=== PATIENT | male | born 1955 | race Caucasian/White ===

== ENCOUNTER 2021-12-03 16:05 | Inpatient (IN) | payer MEDICARE, OTHER ==
[~2021-12-03] VITALS: Ht 185.4 cm; Wt 90.0 kg
[2021-12-03] MEDS ORDERED: SODIUM CHLORIDE 0.9% 500 ML IVB ONE (17:30)
[2021-12-03 17:37] LABS: Basophils # (auto) 0.1 10 ^3/uL (0-0.2); Basophils % (auto) 0.5 % (0.0-2.0); Eosinophils # (auto) 0 10 ^3/uL (0-0.8); Eosinophils % (auto) 0.2 % (0.0-7.0); Hematocrit 44.4 % (41.0-53.0); Hemoglobin 14.2 g/dL (13.5-17.5); Lymphocytes # (auto) 1.3 10 ^3/uL (0.4-5.4); Lymphocytes % (auto) 7.6 % (10.0-50.0); Mean Corpuscular Hemoglobin 27.8 pg (28.0-32.0); Mean Corpuscular Hgb Conc. 31.9 g/dL (32.0-36.0); Mean Corpuscular Volume 87.2 fL (80.0-100.0); Monocytes # (auto) 0.4 10 ^3/uL (0-1.3); Monocytes % (auto) 2.3 % (0.0-12.0); Neutrophils # (auto) 15.4 10 ^3/uL (1.6-8.6); Neutrophils % (auto) 89.4 % (37.0-80.0); Nucleated Red Blood Cells % 0.1 %; Red Blood Cells 5.09 10^6/uL (4.5-5.90); Red Cell Distribution Width 16.8 % (11.8-14.3); White Blood Cell 17.2 10^3/uL (4.4-10.8)
[2021-12-03 17:50] LABS: Lactic Acid w/Reflex 3.5 mmol/L (0.4-2.0)
[2021-12-03 17:54] LABS: INR 1.12 (0.9-1.15)
[2021-12-03] MEDS ORDERED: SODIUM CHLORIDE 0.9% 1,000 ML IV ONE (18:15)
[2021-12-03] MEDS ORDERED: SODIUM CHLORIDE 0.9% 500 ML IV ONE (18:45)
[2021-12-03 18:48] LABS: Urine Bacteria NONE SEEN /hpf (None Seen); Urine Blood Negative /uL (Negative); Urine Hyaline Cast FEW /lpf (0 - 2); Urine Specific Gravity 1.017 (1.001-1.035); Urine WBC <1 /hpf (0 - 3)
[2021-12-03 19:00] LABS: Alcohol, Urine < 3.0 mg/dL (0-10); Amphetamine Screen, Urine NEGATIVE (NEGATIVE); Barbiturate Scree,Urine NEGATIVE (NEGATIVE); Benzodiazephine Screen, Urine NEGATIVE (NEGATIVE); Cannabinoid Screen, Urine NEGATIVE (NEGATIVE); Cocaine Screen, Urine NEGATIVE (NEGATIVE); Opiate Scree,Urine NEGATIVE (NEGATIVE); Phencyclidine Screen, Urine NEGATIVE (NEGATIVE)
[2021-12-03] MEDS ORDERED: cefTRIAXone 1GM/50ML D5W 50 ML IV ONE (19:30)
[2021-12-03] MEDS ORDERED: AZITHROMYCIN 500MG/ 250ML 250 ML IV ONE (19:30)
[2021-12-03] MEDS: NOREPINEPHRINE 8 MG/250ML KIT 250 ML IV SCH (20:00)
[2021-12-03 21:12] LABS: Carbon Dioxide 15 mmol/L (21-32); GFR African American 33 mL/min; GFR Non-African American 27 mL/min
[2021-12-03 21:13] LABS: Blood Alcohol < 3.0 mg/dL (0-5); Magnesium 2.8 mg/dL (1.6-2.6)
[2021-12-03 21:14] LABS: Alanine Aminotransferase 47 U/L (16-61); Alkaline Phosphatase 52 U/L (45-117); Aspartate Aminotransferase 56 U/L (15-37); Bilirubin, Total 0.8 mg/dL (0.2-1.0); Calcium 8.5 mg/dL (8.5-10.1); Total Protein 6.6 g/dL (6.4-8.2)
[2021-12-03 21:15] LABS: BUN/Creatinine Ratio 12.1; Blood Urea Nitrogen 31 mg/dL (7-18); Glucose 106 mg/dL (74-106)
[2021-12-03 21:16] LABS: Anion Gap 10 (5-15); Chloride 116 mmol/L (98-107); Potassium 5.4 mmol/L (3.5-5.1); Sodium 141 mmol/L (136-145)
[2021-12-03] MEDS ORDERED: metroNIDAZOLE 500MG/100ML 100 ML IV ONE (23:30)
[2021-12-03] MEDS ORDERED: ALBUMIN 5% 250 ML IV ONE (23:30)
[2021-12-03] MEDS ORDERED: SODIUM CHLORIDE 0.9% 1,000 ML IV SCH (23:30)
[2021-12-03] MEDS ORDERED: NITROGLYCERIN 0.4 MG SL TAB SL PRN (23:30)
[2021-12-03] MEDS ORDERED: PANTOPRAZOLE 40 MG/10 ML VIAL INJ IV ONE (23:30)
[2021-12-04] MEDS: MORPHINE SULFATE INJ 2 MG/ml SYRG IV PRN ×2 (04:22→06:36)
[2021-12-04] MEDS ORDERED: SODIUM BICARBONATE 8.4 % INJ 50ML VIAL IV ONE (04:45)
[2021-12-04 07:03] LABS: Hematocrit 38.5 % (41.0-53.0); Hemoglobin 12.4 g/dL (13.5-17.5); Mean Corpuscular Hemoglobin 27.8 pg (28.0-32.0)
[2021-12-04 07:04] LABS: Mean Corpuscular Hgb Conc. 32.3 g/dL (32.0-36.0); Mean Corpuscular Volume 86.4 fL (80.0-100.0); Red Blood Cells 4.45 10^6/uL (4.5-5.90); Red Cell Distribution Width 16.7 % (11.8-14.3)
[2021-12-04 07:17] LABS: Basophils % (manual) 0 (0.0-2.0); Blast Cells 0; Eosinophils % (manual) 0 (0-7); Metamyelocytes % 0; Myelocytes % 0; Promyelocytes % 0; Reactive Lymphocytes 0; White Blood Cell 31.2 10^3/uL (4.4-10.8)
[2021-12-04] MEDS ORDERED: LORazepam 2MG/ML-1ML VIAL IV ONE (07:30)
[2021-12-04] MEDS: metroNIDAZOLE 500MG/100ML 100 ML IV SCH ×3 (07:53→23:11)
[2021-12-04] MEDS: cefTRIAXone 1GM/50ML D5W 50 ML IV SCH (09:42)
[2021-12-04] MEDS ORDERED: PANTOPRAZOLE 40 MG/10 ML VIAL INJ IV SCH (10:00)
[2021-12-04] MEDS: ACETAMINOPHEN 325 MG TAB PO PRN ×2 (11:03→18:47)
[2021-12-04 11:13] LABS: BUN/Creatinine Ratio 10.5; Potassium 6.3 mmol/L (3.5-5.1)
[2021-12-04 11:14] LABS: Albumin 3.1 g/dL (3.4-5.0); Bilirubin, Total 0.7 mg/dL (0.2-1.0); Total Protein 6.4 g/dL (6.4-8.2)
[2021-12-04] MEDS ORDERED: InsuLIN REG 1unit/0.01ml Soln (100units/ml) IV ONE (11:30)
[2021-12-04] MEDS ORDERED: DEXTROSE (50%) 50ML SYRG IV ONE (11:30)
[2021-12-04] MEDS ORDERED: ALBUTEROL SULF 2.5 MG/0.5ML(0.5%) NEB SOLN NEB ONE (11:30)
[2021-12-04] MEDS ORDERED: SODIUM ZIRCONIUM CYCL 10 GM PAK PO ONE (11:30)
[2021-12-04] MEDS ORDERED: SODIUM CHLORIDE 0.9% 1,000 ML IV ONE ×2 (12:00→18:00)
[2021-12-04 12:04] LABS: Band Neutrophils % (manual) 34; Lymphocytes % (manual) 9 (10.0-50.0); Monocytes % (manual) 9 (0-12)
[2021-12-04 13:09] VITALS: BP 89/74
[2021-12-04] MEDS: LINEZOLID 600MG/300ML 300 ML IV SCH ×2 (13:11→23:12)
[2021-12-04] MEDS ORDERED: FUROSEMIDE 100 MG/10ML VIAL IV ONE (14:30)
[2021-12-04] MEDS: SODIUM BICARBONATE 50ML VIAL 150 ML in D5W 5% 1,000 ML IV SCH (15:15)
[2021-12-04 15:17] LABS: BUN/Creatinine Ratio 12.1; Calcium 7.6 mg/dL (8.5-10.1); Potassium 4.9 mmol/L (3.5-5.1)
[2021-12-04] MEDS ORDERED: HYDROcodone-ACET 5/325MG TAB PO PRN (20:30)
[2021-12-04] MEDS ORDERED: THIAMINE 100mg/ml INJ (200mg/2ml VIAL) IV ONE (20:45)
[2021-12-04] MEDS: PANTOPRAZOLE 40 MG/10 ML VIAL INJ IV SCH (23:12)
[2021-12-05] VITALS (43 sets, daily range): BP systolic 77–166; BP diastolic 52–107
[2021-12-05] MEDS: NOREPINEPHRINE 8 MG/250ML KIT 250 ML IV SCH ×2 (04:08→20:00)
[2021-12-05] MEDS: HYDROcodone-ACET 5/325MG TAB PO PRN ×2 (05:31→10:34)
[2021-12-05] MEDS: SODIUM BICARBONATE 50ML VIAL 150 ML in D5W 5% 1,000 ML IV SCH ×2 (05:43→17:13)
[2021-12-05] MEDS: metroNIDAZOLE 500MG/100ML 100 ML IV SCH ×2 (06:00→15:01)
[2021-12-05 08:13] LABS: Hematocrit 38.7 % (41.0-53.0); Hemoglobin 12.7 g/dL (13.5-17.5); Mean Corpuscular Hemoglobin 27.7 pg (28.0-32.0); Mean Corpuscular Hgb Conc. 32.8 g/dL (32.0-36.0); Mean Corpuscular Volume 84.5 fL (80.0-100.0); Red Blood Cells 4.57 10^6/uL (4.5-5.90); Red Cell Distribution Width 16.7 % (11.8-14.3); White Blood Cell 20.7 10^3/uL (4.4-10.8)
[2021-12-05 08:29] LABS: Blast Cells 0; Eosinophils % (manual) 0 (0-7); Myelocytes % 0; Promyelocytes % 0; Reactive Lymphocytes 0
[2021-12-05 08:32] LABS: BUN/Creatinine Ratio 14.7; Calcium 7.6 mg/dL (8.5-10.1); Potassium 4.5 mmol/L (3.5-5.1)
[2021-12-05 10:22] LABS: Band Neutrophils % (manual) 14; Basophils % (manual) 1 (0.0-2.0); Lymphocytes % (manual) 6 (10.0-50.0); Metamyelocytes % 3; Monocytes % (manual) 6 (0-12)
[2021-12-05] MEDS: PANTOPRAZOLE 40 MG/10 ML VIAL INJ IV SCH ×2 (10:36→21:37)
[2021-12-05] MEDS: cefTRIAXone 1GM/50ML D5W 50 ML IV SCH (10:36)
[2021-12-05] MEDS ORDERED: SODIUM CHLORIDE 0.9% 500 ML IV ONE (11:00)
[2021-12-05] MEDS ORDERED: ASPI1TAB19 PO (12:12)
[2021-12-05] MEDS ORDERED: DICL75TA3 PO ×2 (12:12)
[2021-12-05] MEDS ORDERED: LISI-275 PO (12:12)
[2021-12-05] MEDS ORDERED: CARV3.1240 PO (12:12)
[2021-12-05] MEDS ORDERED: GABA300C10 PO (12:12)
[2021-12-05] MEDS ORDERED: ATOR40TA52 PO (12:12)
[2021-12-05] MEDS ORDERED: MONT-8 OR (12:12)
[2021-12-05] MEDS ORDERED: MULT-1018 PO (12:12)
[2021-12-05] MEDS: LINEZOLID 600MG/300ML 300 ML IV SCH ×2 (12:16→23:23)
[2021-12-05 12:51] LABS: Potassium 4.2 mmol/L (3.5-5.1)
[2021-12-05 12:55] LABS: BUN/Creatinine Ratio 14.8; Calcium 7.2 mg/dL (8.5-10.1)
[2021-12-05] MEDS: HYOSCYAMINE SULF 0.125 MG ODT TAB PO PRN (15:02)
[2021-12-05] MEDS ORDERED: GABAPENTIN 300 MG CAP PO SCH ×2 (16:00→22:00)
[2021-12-05] MEDS: PIPERACILLIN-TAZOB 2.25GM 50 ML IV SCH ×2 (17:12→21:39)
[2021-12-05 18:03] LABS: BUN/Creatinine Ratio 14.3; Calcium 7.2 mg/dL (8.5-10.1); Potassium 3.9 mmol/L (3.5-5.1)
[2021-12-05] MEDS: ALBUTEROL SULF 2.5 MG/0.5ML(0.5%) NEB SOLN NEB PRN (18:54)
[2021-12-05] MEDS ORDERED: GABAPENTIN 300 MG CAP PO ONE (20:00)
[2021-12-05] MEDS: MONTELUKAST SODIUM 10 MG TAB PO SCH (21:38)
[2021-12-05] MEDS ORDERED: levETIRAcetam 500 MG TAB PO SCH (22:00)
[2021-12-05] MEDS: MORPHINE SULFATE INJ 2 MG/ml SYRG IV PRN ×2 (23:32)
[2021-12-06] VITALS (84 sets, daily range): BP systolic 84–154; BP diastolic 47–109
[2021-12-06] MEDS: NOREPINEPHRINE 8 MG/250ML KIT 250 ML IV SCH (00:07)
[2021-12-06 04:29] LABS: Basophils # (auto) 0 10 ^3/uL (0-0.2); Basophils % (auto) 0.2 % (0.0-2.0); Eosinophils # (auto) 0 10 ^3/uL (0-0.8); Eosinophils % (auto) 0.2 % (0.0-7.0); Hemoglobin 11.1 g/dL (13.5-17.5); Lymphocytes # (auto) 1.2 10 ^3/uL (0.4-5.4); Lymphocytes % (auto) 7.4 % (10.0-50.0); Mean Corpuscular Hemoglobin 28.3 pg (28.0-32.0); Mean Corpuscular Hgb Conc. 33.7 g/dL (32.0-36.0); Mean Corpuscular Volume 83.9 fL (80.0-100.0); Monocytes # (auto) 1.2 10 ^3/uL (0-1.3); Monocytes % (auto) 7.9 % (0.0-12.0); Neutrophils # (auto) 13.3 10 ^3/uL (1.6-8.6); Neutrophils % (auto) 84.3 % (37.0-80.0); Nucleated Red Blood Cells % 1.8 %; Red Blood Cells 3.93 10^6/uL (4.5-5.90); Red Cell Distribution Width 16.7 % (11.8-14.3); White Blood Cell 15.7 10^3/uL (4.4-10.8)
[2021-12-06 04:53] LABS: BUN/Creatinine Ratio 14.9; Calcium 7.4 mg/dL (8.5-10.1); Potassium 3.6 mmol/L (3.5-5.1)
[2021-12-06] MEDS: PIPERACILLIN-TAZOB 2.25GM 50 ML IV SCH ×3 (05:00→18:47)
[2021-12-06] MEDS ORDERED: SODIUM BICARBONATE 8.4% INJ 50ML SYRINGE ONE (05:14)
[2021-12-06] MEDS ORDERED: SODIUM BICARBONATE 8.4 % INJ 50ML VIAL IV ONE (05:15)
[2021-12-06] MEDS: SODIUM BICARBONATE 50ML VIAL 150 ML in D5W 5% 1,000 ML IV SCH (05:26)
[2021-12-06] MEDS: MORPHINE SULFATE INJ 2 MG/ml SYRG IV PRN ×3 (06:16→22:04)
[2021-12-06] MEDS: ALBUTEROL SULF 2.5 MG/0.5ML(0.5%) NEB SOLN NEB PRN ×2 (07:21→12:12)
[2021-12-06] MEDS: PANTOPRAZOLE 40 MG/10 ML VIAL INJ IV SCH ×2 (09:34→21:58)
[2021-12-06] MEDS ORDERED: GABAPENTIN 300 MG CAP PO SCH (10:00)
[2021-12-06] MEDS ORDERED: ACETAMINOPHEN 325 MG TAB PO PRN (11:15)
[2021-12-06] MEDS: ACETAMINOPHEN 325 MG TAB PO PRN (11:34)
[2021-12-06] MEDS: GABAPENTIN 100 MG CAP PO SCH ×2 (11:34→22:05)
[2021-12-06] MEDS: LINEZOLID 600MG/300ML 300 ML IV SCH ×2 (11:37→23:24)
[2021-12-06 12:11] LABS: INR 1.08 (0.9-1.15)
[2021-12-06] MEDS: ONDANSETRON HCL 4 MG/2 ML VIAL IV PRN (12:30)
[2021-12-06] MEDS: SODIUM CHLORIDE 0.9% 1,000 ML IV SCH (14:30)
[2021-12-06] MEDS ORDERED: LIDOCAINE 1% (LOCAL ANESTH.) PF 5ml SDV ID ONE (16:30)
[2021-12-06] MEDS: SODIUM CHLOR 0.9% PF (SALINE LOCK) 10ML VIAL/SYR IV SCH (22:04)
[2021-12-06] MEDS: MONTELUKAST SODIUM 10 MG TAB PO SCH (22:05)
[2021-12-06] MEDS: HEPARIN SODIUM (PORCINE) 5000 UNITS/ML 1ML VIAL SC SCH (22:07)
[2021-12-07] VITALS (67 sets, daily range): BP systolic 85–130; BP diastolic 29–87
[2021-12-07] MEDS: PIPERACILLIN-TAZOB 2.25GM 50 ML IV SCH ×3 (01:35→09:59)
[2021-12-07] MEDS: HYOSCYAMINE SULF 0.125 MG ODT TAB PO PRN (03:06)
[2021-12-07] MEDS: SODIUM CHLORIDE 0.9% 1,000 ML IV SCH ×3 (05:38→23:43)
[2021-12-07] MEDS: MORPHINE SULFATE INJ 2 MG/ml SYRG IV PRN ×6 (05:51→23:30)
[2021-12-07 06:00] LABS: Basophils # (auto) 0.1 10 ^3/uL (0-0.2); Basophils % (auto) 0.5 % (0.0-2.0); Eosinophils # (auto) 0.1 10 ^3/uL (0-0.8); Hematocrit 30.3 % (41.0-53.0); Hemoglobin 10.4 g/dL (13.5-17.5); Lymphocytes # (auto) 1.3 10 ^3/uL (0.4-5.4); Lymphocytes % (auto) 11.1 % (10.0-50.0); Mean Corpuscular Hgb Conc. 34.4 g/dL (32.0-36.0); Mean Corpuscular Volume 84.2 fL (80.0-100.0); Monocytes % (auto) 8.3 % (0.0-12.0); Neutrophils # (auto) 9.4 10 ^3/uL (1.6-8.6); Neutrophils % (auto) 79.1 % (37.0-80.0); Nucleated Red Blood Cells % 0.1 %; Red Cell Distribution Width 16.5 % (11.8-14.3); White Blood Cell 11.9 10^3/uL (4.4-10.8)
[2021-12-07 06:18] LABS: BUN/Creatinine Ratio 12.7; Calcium 7.6 mg/dL (8.5-10.1); Potassium 3.7 mmol/L (3.5-5.1)
[2021-12-07] MEDS ORDERED: MORPHINE SULFATE INJ 2 MG/ml SYRG ONE (09:53)
[2021-12-07] MEDS: PANTOPRAZOLE 40 MG/10 ML VIAL INJ IV SCH ×2 (09:59→22:10)
[2021-12-07] MEDS: SODIUM CHLOR 0.9% PF (SALINE LOCK) 10ML VIAL/SYR IV SCH ×2 (10:04→22:12)
[2021-12-07] MEDS: HEPARIN SODIUM (PORCINE) 5000 UNITS/ML 1ML VIAL SC SCH ×2 (10:16→22:04)
[2021-12-07] MEDS: GABAPENTIN 100 MG CAP PO SCH (10:53)
[2021-12-07] MEDS: LINEZOLID 600MG/300ML 300 ML IV SCH ×2 (12:08→23:00)
[2021-12-07] MEDS ORDERED: IOHEXOL 300 MG/ML 100ML BOTTLE IJ ONE (13:58)
[2021-12-07] MEDS: GABAPENTIN 300 MG CAP PO SCH ×2 (16:35→22:10)
[2021-12-07] MEDS: PIPERACILLIN-TAZOB 3.375GM 100 ML IV SCH ×2 (16:35→22:12)
[2021-12-07] MEDS: NOREPINEPHRINE 8 MG/250ML KIT 250 ML IV SCH (20:00)
[2021-12-07] MEDS: MONTELUKAST SODIUM 10 MG TAB PO SCH (22:09)
[2021-12-08] VITALS (14 sets, daily range): BP systolic 105–150; BP diastolic 62–91
[2021-12-08] MEDS: PIPERACILLIN-TAZOB 3.375GM 100 ML IV SCH ×5 (03:11→22:38)
[2021-12-08] MEDS: MORPHINE SULFATE INJ 2 MG/ml SYRG IV PRN ×6 (03:21→23:02)
[2021-12-08 03:47] LABS: Basophils # (auto) 0.1 10 ^3/uL (0-0.2); Basophils % (auto) 0.5 % (0.0-2.0); Eosinophils # (auto) 0.2 10 ^3/uL (0-0.8); Eosinophils % (auto) 1.5 % (0.0-7.0); Hematocrit 30.5 % (41.0-53.0); Hemoglobin 10.3 g/dL (13.5-17.5); Lymphocytes # (auto) 1.3 10 ^3/uL (0.4-5.4); Lymphocytes % (auto) 12.4 % (10.0-50.0); Mean Corpuscular Hemoglobin 28.4 pg (28.0-32.0); Mean Corpuscular Hgb Conc. 33.7 g/dL (32.0-36.0); Mean Corpuscular Volume 84.3 fL (80.0-100.0); Monocytes % (auto) 9.9 % (0.0-12.0); Neutrophils # (auto) 7.9 10 ^3/uL (1.6-8.6); Neutrophils % (auto) 75.7 % (37.0-80.0); Red Blood Cells 3.62 10^6/uL (4.5-5.90); Red Cell Distribution Width 16.2 % (11.8-14.3); White Blood Cell 10.4 10^3/uL (4.4-10.8)
[2021-12-08 04:07] LABS: BUN/Creatinine Ratio 12.6; Calcium 7.5 mg/dL (8.5-10.1); Potassium 3.7 mmol/L (3.5-5.1)
[2021-12-08] MEDS: GABAPENTIN 300 MG CAP PO SCH ×3 (05:34→22:39)
[2021-12-08] MEDS: SODIUM CHLORIDE 0.9% 1,000 ML IV SCH ×3 (08:29→15:40)
[2021-12-08] MEDS: PANTOPRAZOLE 40 MG/10 ML VIAL INJ IV SCH ×2 (12:52→22:39)
[2021-12-08] MEDS: SODIUM CHLOR 0.9% PF (SALINE LOCK) 10ML VIAL/SYR IV SCH ×2 (12:52→22:39)
[2021-12-08] MEDS: LINEZOLID 600MG/300ML 300 ML IV SCH (12:53)
[2021-12-08] MEDS: HEPARIN SODIUM (PORCINE) 5000 UNITS/ML 1ML VIAL SC SCH ×2 (12:53→22:44)
[2021-12-08] MEDS: MONTELUKAST SODIUM 10 MG TAB PO SCH (22:40)
[2021-12-09] MEDS: LINEZOLID 600MG/300ML 300 ML IV SCH ×3 (00:24→23:04)
[2021-12-09] MEDS: PIPERACILLIN-TAZOB 3.375GM 100 ML IV SCH ×5 (02:54→20:56)
[2021-12-09 05:00] VITALS: BP 157/91
[2021-12-09 05:55] LABS: Basophils # (auto) 0.1 10 ^3/uL (0-0.2); Basophils % (auto) 0.6 % (0.0-2.0); Eosinophils # (auto) 0.2 10 ^3/uL (0-0.8); Eosinophils % (auto) 2.1 % (0.0-7.0); Hematocrit 35.1 % (41.0-53.0); Hemoglobin 11.7 g/dL (13.5-17.5); Lymphocytes # (auto) 1.9 10 ^3/uL (0.4-5.4); Lymphocytes % (auto) 21.8 % (10.0-50.0); Mean Corpuscular Hemoglobin 28.5 pg (28.0-32.0); Mean Corpuscular Hgb Conc. 33.5 g/dL (32.0-36.0); Mean Corpuscular Volume 85.2 fL (80.0-100.0); Monocytes # (auto) 1.2 10 ^3/uL (0-1.3); Neutrophils # (auto) 5.6 10 ^3/uL (1.6-8.6); Neutrophils % (auto) 62.5 % (37.0-80.0); Nucleated Red Blood Cells % 0.1 %; Red Blood Cells 4.11 10^6/uL (4.5-5.90); Red Cell Distribution Width 16.5 % (11.8-14.3); White Blood Cell 8.9 10^3/uL (4.4-10.8)
[2021-12-09 06:15] LABS: BUN/Creatinine Ratio 10.9; Calcium 8.4 mg/dL (8.5-10.1); Potassium 3.3 mmol/L (3.5-5.1)
[2021-12-09] MEDS: GABAPENTIN 300 MG CAP PO SCH ×3 (06:18→23:03)
[2021-12-09] MEDS: MORPHINE SULFATE INJ 2 MG/ml SYRG IV PRN ×4 (06:37→20:50)
[2021-12-09] MEDS: SODIUM CHLORIDE 0.9% 1,000 ML IV SCH (06:38)
[2021-12-09 08:00] VITALS: BP 139/91
[2021-12-09] MEDS: HEPARIN SODIUM (PORCINE) 5000 UNITS/ML 1ML VIAL SC SCH ×2 (10:00→22:00)
[2021-12-09] MEDS: PANTOPRAZOLE 40 MG/10 ML VIAL INJ IV SCH ×2 (10:00→23:02)
[2021-12-09] MEDS: SODIUM CHLOR 0.9% PF (SALINE LOCK) 10ML VIAL/SYR IV SCH ×2 (10:00→22:00)
[2021-12-09 12:00] VITALS: BP 129/90
[2021-12-09 16:00] VITALS: BP 160/94
[2021-12-09 22:00] VITALS: BP 143/93
[2021-12-09] MEDS: MONTELUKAST SODIUM 10 MG TAB PO SCH (23:03)
[2021-12-10] MEDS: MORPHINE SULFATE INJ 2 MG/ml SYRG IV PRN ×7 (00:54→23:14)
[2021-12-10] MEDS: PIPERACILLIN-TAZOB 3.375GM 100 ML IV SCH ×4 (03:14→20:58)
[2021-12-10 05:00] VITALS: BP 144/96
[2021-12-10] MEDS: GABAPENTIN 300 MG CAP PO SCH ×3 (05:27→21:55)
[2021-12-10 06:08] LABS: BUN/Creatinine Ratio 10.2; Calcium 7.8 mg/dL (8.5-10.1); Potassium 3.3 mmol/L (3.5-5.1)
[2021-12-10 06:11] LABS: Basophils # (auto) 0 10 ^3/uL (0-0.2); Basophils % (auto) 0.7 % (0.0-2.0); Eosinophils # (auto) 0.3 10 ^3/uL (0-0.8); Eosinophils % (auto) 4.3 % (0.0-7.0); Hematocrit 31.4 % (41.0-53.0); Hemoglobin 10.8 g/dL (13.5-17.5); Lymphocytes # (auto) 2.2 10 ^3/uL (0.4-5.4); Lymphocytes % (auto) 28.2 % (10.0-50.0); Mean Corpuscular Hemoglobin 29.4 pg (28.0-32.0); Mean Corpuscular Hgb Conc. 34.5 g/dL (32.0-36.0); Mean Corpuscular Volume 85.1 fL (80.0-100.0); Monocytes # (auto) 1.3 10 ^3/uL (0-1.3); Monocytes % (auto) 16.9 % (0.0-12.0); Neutrophils # (auto) 3.8 10 ^3/uL (1.6-8.6); Neutrophils % (auto) 49.9 % (37.0-80.0); Nucleated Red Blood Cells % 0.1 %; Red Blood Cells 3.69 10^6/uL (4.5-5.90); Red Cell Distribution Width 15.6 % (11.8-14.3); White Blood Cell 7.6 10^3/uL (4.4-10.8)
[2021-12-10 08:00] VITALS: BP 114/90
[2021-12-10] MEDS: HEPARIN SODIUM (PORCINE) 5000 UNITS/ML 1ML VIAL SC SCH ×2 (10:00→22:05)
[2021-12-10] MEDS: SODIUM CHLOR 0.9% PF (SALINE LOCK) 10ML VIAL/SYR IV SCH ×2 (10:00→22:19)
[2021-12-10] MEDS: PANTOPRAZOLE 40 MG/10 ML VIAL INJ IV SCH ×2 (10:00→21:55)
[2021-12-10] MEDS ORDERED: GOLYTELY 4L KIT PO ONE (11:15)
[2021-12-10 11:25] VITALS: BP 114/90
[2021-12-10 12:00] VITALS: BP 130/84
[2021-12-10] MEDS ORDERED: POTASSIUM EFFERVESENT TAB 25 MEQ PO ONE (12:15)
[2021-12-10] MEDS: LINEZOLID 600MG/300ML 300 ML IV SCH ×2 (12:28→23:13)
[2021-12-10] MEDS: ALBUTEROL SULF 2.5 MG/0.5ML(0.5%) NEB SOLN NEB PRN (14:50)
[2021-12-10 16:00] VITALS: BP 121/77
[2021-12-10] MEDS: MONTELUKAST SODIUM 10 MG TAB PO SCH (21:56)
[2021-12-10 22:00] VITALS: BP 119/90
[2021-12-11] MEDS: PIPERACILLIN-TAZOB 3.375GM 100 ML IV SCH ×4 (03:05→23:36)
[2021-12-11] MEDS: MORPHINE SULFATE INJ 2 MG/ml SYRG IV PRN ×5 (03:06→20:15)
[2021-12-11 05:00] VITALS: BP 141/93
[2021-12-11 05:09] LABS: Basophils # (auto) 0 10 ^3/uL (0-0.2); Basophils % (auto) 0.6 % (0.0-2.0); Eosinophils # (auto) 0.4 10 ^3/uL (0-0.8); Eosinophils % (auto) 5.5 % (0.0-7.0); Hematocrit 32.7 % (41.0-53.0); Hemoglobin 10.8 g/dL (13.5-17.5); Lymphocytes % (auto) 26.1 % (10.0-50.0); Mean Corpuscular Hemoglobin 28.2 pg (28.0-32.0); Mean Corpuscular Hgb Conc. 33.1 g/dL (32.0-36.0); Mean Corpuscular Volume 85.4 fL (80.0-100.0); Monocytes % (auto) 13.4 % (0.0-12.0); Neutrophils # (auto) 4.1 10 ^3/uL (1.6-8.6); Neutrophils % (auto) 54.4 % (37.0-80.0); Nucleated Red Blood Cells % 0.1 %; Red Blood Cells 3.83 10^6/uL (4.5-5.90); Red Cell Distribution Width 15.6 % (11.8-14.3); White Blood Cell 7.6 10^3/uL (4.4-10.8)
[2021-12-11 05:27] LABS: BUN/Creatinine Ratio 6.5; Calcium 7.9 mg/dL (8.5-10.1); Potassium 3.5 mmol/L (3.5-5.1)
[2021-12-11] MEDS: GABAPENTIN 300 MG CAP PO SCH ×3 (05:44→21:20)
[2021-12-11 09:06] VITALS: BP 137/91
[2021-12-11] MEDS: SODIUM CHLOR 0.9% PF (SALINE LOCK) 10ML VIAL/SYR IV SCH ×2 (10:09→21:20)
[2021-12-11] MEDS: PANTOPRAZOLE 40 MG/10 ML VIAL INJ IV SCH ×2 (10:09→21:20)
[2021-12-11] MEDS: HEPARIN SODIUM (PORCINE) 5000 UNITS/ML 1ML VIAL SC SCH ×2 (10:17→21:19)
[2021-12-11] MEDS ORDERED: diphenhdrAMINE HCL 50 MG/1 ML VL ONE (10:37)
[2021-12-11] MEDS ORDERED: SODIUM CHLORIDE LOCK 10 ML ONE (10:37)
[2021-12-11] MEDS: MIDAZOLAM HCL 5 MG/ML-1ML VIAL ONE ×3 (13:12→13:18)
[2021-12-11] MEDS: fentaNYL CITRATE 100 MCG/2 ML VL ONE ×3 (13:12→13:18)
[2021-12-11 14:00] VITALS: BP_SYST 125; BP_SYST 137; BP_DIAS 80; BP_DIAS 90
[2021-12-11] MEDS: LINEZOLID 600MG/300ML 300 ML IV SCH (14:47)
[2021-12-11 17:00] VITALS: BP 125/90
[2021-12-11] MEDS: MONTELUKAST SODIUM 10 MG TAB PO SCH (21:20)
[2021-12-11 22:00] VITALS: BP 137/88
[2021-12-12] MEDS: MORPHINE SULFATE INJ 2 MG/ml SYRG IV PRN ×7 (00:14→23:23)
[2021-12-12 05:00] VITALS: BP 149/89
[2021-12-12] MEDS: PIPERACILLIN-TAZOB 3.375GM 100 ML IV SCH ×3 (05:35→18:58)
[2021-12-12] MEDS: GABAPENTIN 300 MG CAP PO SCH ×3 (05:35→21:49)
[2021-12-12 06:57] LABS: Eosinophils % (auto) 5.4 % (0.0-7.0)
[2021-12-12 07:00] LABS: Basophils # (auto) 0.1 10 ^3/uL (0-0.2); Basophils % (auto) 1.1 % (0.0-2.0); Eosinophils # (auto) 0.5 10 ^3/uL (0-0.8); Hematocrit 32.9 % (41.0-53.0); Hemoglobin 10.7 g/dL (13.5-17.5); Lymphocytes % (auto) 35.2 % (10.0-50.0); Mean Corpuscular Hemoglobin 28.4 pg (28.0-32.0); Mean Corpuscular Hgb Conc. 32.6 g/dL (32.0-36.0); Mean Corpuscular Volume 87.1 fL (80.0-100.0); Neutrophils # (auto) 3.9 10 ^3/uL (1.6-8.6); Neutrophils % (auto) 46.3 % (37.0-80.0); Nucleated Red Blood Cells % 0.1 %; Red Blood Cells 3.78 10^6/uL (4.5-5.90); Red Cell Distribution Width 15.9 % (11.8-14.3); White Blood Cell 8.5 10^3/uL (4.4-10.8)
[2021-12-12 07:10] LABS: BUN/Creatinine Ratio 5.4; Calcium 7.8 mg/dL (8.5-10.1); Potassium 3.6 mmol/L (3.5-5.1)
[2021-12-12 08:10] VITALS: BP 127/95
[2021-12-12] MEDS: PANTOPRAZOLE 40 MG/10 ML VIAL INJ IV SCH ×2 (09:26→21:49)
[2021-12-12] MEDS: SODIUM CHLOR 0.9% PF (SALINE LOCK) 10ML VIAL/SYR IV SCH ×2 (09:27→21:49)
[2021-12-12] MEDS: HEPARIN SODIUM (PORCINE) 5000 UNITS/ML 1ML VIAL SC SCH ×2 (09:41→21:54)
[2021-12-12 12:15] VITALS: BP 143/65
[2021-12-12 16:51] VITALS: BP 147/95
[2021-12-12] MEDS: MONTELUKAST SODIUM 10 MG TAB PO SCH (21:49)
[2021-12-12 22:00] VITALS: BP 143/83
[2021-12-13] MEDS: PIPERACILLIN-TAZOB 3.375GM 100 ML IV SCH ×3 (00:10→11:26)
[2021-12-13] MEDS: MORPHINE SULFATE INJ 2 MG/ml SYRG IV PRN ×4 (04:48→20:44)
[2021-12-13 05:00] VITALS: BP 134/78
[2021-12-13] MEDS: GABAPENTIN 300 MG CAP PO SCH ×3 (05:39→22:00)
[2021-12-13] MEDS: HEPARIN SODIUM (PORCINE) 5000 UNITS/ML 1ML VIAL SC SCH ×2 (11:36→21:42)
[2021-12-13] MEDS: PANTOPRAZOLE 40 MG/10 ML VIAL INJ IV SCH ×2 (11:36→21:41)
[2021-12-13] MEDS: SODIUM CHLOR 0.9% PF (SALINE LOCK) 10ML VIAL/SYR IV SCH ×2 (11:37→21:43)
[2021-12-13 13:00] VITALS: BP 136/81
[2021-12-13] MEDS: HYOSCYAMINE SULF 0.125 MG ODT TAB PO PRN (15:58)
[2021-12-13 16:55] VITALS: BP 150/98
[2021-12-13] MEDS ORDERED: AMINO ACID INFUSION IN D10W 1,000 ML IV NR (21:45)
[2021-12-13 22:00] VITALS: BP 163/94
[2021-12-13] MEDS ORDERED: DEXTROSE (50%) 50ML SYRG IV SCH (22:00)
[2021-12-13] MEDS: MONTELUKAST SODIUM 10 MG TAB PO SCH (22:00)
[2021-12-13] MEDS: ACCU-CHEK COMFORT CURVE STRIP VI SCH (23:41)
[2021-12-13] MEDS: InsuLIN REG 1unit/0.01ml Soln (100units/ml) SC SCH (23:42)
[2021-12-14] MEDS: MORPHINE SULFATE INJ 2 MG/ml SYRG IV PRN ×6 (00:17→22:11)
[2021-12-14] MEDS: MONTELUKAST SODIUM 10 MG TAB PO SCH ×2 (01:02→22:09)
[2021-12-14] MEDS: GABAPENTIN 300 MG CAP PO SCH ×4 (01:02→22:08)
[2021-12-14] MEDS: ACCU-CHEK COMFORT CURVE STRIP VI SCH ×3 (05:46→17:42)
[2021-12-14] MEDS: InsuLIN REG 1unit/0.01ml Soln (100units/ml) SC SCH ×4 (05:46→22:41)
[2021-12-14 05:49] VITALS: BP 149/85
[2021-12-14 06:47] LABS: Albumin 2.2 g/dL (3.4-5.0); Calcium 7.9 mg/dL (8.5-10.1); Magnesium 1.9 mg/dL (1.6-2.6); Potassium 3.7 mmol/L (3.5-5.1)
[2021-12-14 06:50] LABS: BUN/Creatinine Ratio 7.3; Bilirubin, Total 0.3 mg/dL (0.2-1.0); Phosphorus 2.2 mg/dL (2.5-4.90); Total Protein 5.5 g/dL (6.4-8.2)
[2021-12-14 08:05] LABS: Basophils # (auto) 0.1 10 ^3/uL (0-0.2); Basophils % (auto) 1.1 % (0.0-2.0); Eosinophils # (auto) 0.1 10 ^3/uL (0-0.8); Eosinophils % (auto) 1.8 % (0.0-7.0); Hemoglobin 10.7 g/dL (13.5-17.5); Lymphocytes % (auto) 25.1 % (10.0-50.0); Mean Corpuscular Hemoglobin 28.6 pg (28.0-32.0); Mean Corpuscular Hgb Conc. 32.5 g/dL (32.0-36.0); Monocytes % (auto) 11.8 % (0.0-12.0); Neutrophils # (auto) 4.9 10 ^3/uL (1.6-8.6); Neutrophils % (auto) 60.2 % (37.0-80.0); Nucleated Red Blood Cells % 0.1 %; Red Blood Cells 3.75 10^6/uL (4.5-5.90); Red Cell Distribution Width 15.6 % (11.8-14.3); White Blood Cell 8.1 10^3/uL (4.4-10.8)
[2021-12-14 09:00] VITALS: BP 128/86
[2021-12-14] MEDS: SODIUM CHLOR 0.9% PF (SALINE LOCK) 10ML VIAL/SYR IV SCH ×2 (09:30→22:14)
[2021-12-14] MEDS ORDERED: SODIUM PHOSPHATES 40 MEQ in D5W 5% 250 ML IV ONE (09:45)
[2021-12-14] MEDS: PANTOPRAZOLE 40 MG/10 ML VIAL INJ IV SCH ×2 (09:51→22:09)
[2021-12-14] MEDS: HEPARIN SODIUM (PORCINE) 5000 UNITS/ML 1ML VIAL SC SCH ×2 (09:58→22:14)
[2021-12-14] MEDS: BENZOCAINE (DENTAL) 20 % SPRAY 60ML MT PRN (10:17)
[2021-12-14] MEDS ORDERED: BENZOCAINE (DENTAL) 20 % SPRAY 60ML MT ONE (12:00)
[2021-12-14] MEDS ORDERED: TPN PER PHARMACY 0 ML IV SCH (12:00)
[2021-12-14 13:00] VITALS: BP 138/89
[2021-12-14] MEDS: PIPERACILLIN-TAZOB 3.375GM 100 ML IV SCH ×2 (13:13→18:00)
[2021-12-14 17:02] VITALS: BP 153/100
[2021-12-14] MEDS ORDERED: TPN PER PHARMACY IV NR ×9 (20:00)
[2021-12-14 22:00] VITALS: BP 147/99
[2021-12-15] MEDS: PIPERACILLIN-TAZOB 3.375GM 100 ML IV SCH ×3 (00:17→12:20)
[2021-12-15] MEDS: ACCU-CHEK COMFORT CURVE STRIP VI SCH ×4 (04:52→17:39)
[2021-12-15 05:00] VITALS: BP 131/80
[2021-12-15] MEDS: GABAPENTIN 300 MG CAP PO SCH ×3 (05:42→22:15)
[2021-12-15] MEDS: MORPHINE SULFATE INJ 2 MG/ml SYRG IV PRN ×5 (05:45→23:04)
[2021-12-15] MEDS: InsuLIN REG 1unit/0.01ml Soln (100units/ml) SC SCH ×3 (06:00→17:37)
[2021-12-15 06:57] LABS: Albumin 2.6 g/dL (3.4-5.0); Calcium 8.4 mg/dL (8.5-10.1); Magnesium 1.6 mg/dL (1.6-2.6); Potassium 3.2 mmol/L (3.5-5.1)
[2021-12-15 07:03] LABS: Bilirubin, Total 0.4 mg/dL (0.2-1.0); Phosphorus 3.1 mg/dL (2.5-4.90); Total Protein 6.1 g/dL (6.4-8.2)
[2021-12-15 09:00] VITALS: BP 148/102
[2021-12-15] MEDS: PANTOPRAZOLE 40 MG/10 ML VIAL INJ IV SCH ×2 (10:04→22:16)
[2021-12-15] MEDS: SODIUM CHLOR 0.9% PF (SALINE LOCK) 10ML VIAL/SYR IV SCH ×2 (10:06→22:16)
[2021-12-15] MEDS: HEPARIN SODIUM (PORCINE) 5000 UNITS/ML 1ML VIAL SC SCH ×2 (10:06→22:54)
[2021-12-15] MEDS: BENZOCAINE (DENTAL) 20 % SPRAY 60ML MT PRN (10:12)
[2021-12-15] MEDS: MAGNESIUM SULFATE 1GM/100ML 100 ML IV SCH ×2 (12:18→12:59)
[2021-12-15 13:00] VITALS: BP 134/91
[2021-12-15] MEDS: POTASSIUM CHL 20MEQ/100ML 100 ML IV SCH ×2 (14:55→17:16)
[2021-12-15] MEDS ORDERED: IOHEXOL 300 MG/ML 100ML BOTTLE IJ ONE (16:18)
[2021-12-15 17:00] VITALS: BP 128/92
[2021-12-15] MEDS ORDERED: TPN PER PHARMACY IV NR ×10 (20:00)
[2021-12-15] MEDS: MONTELUKAST SODIUM 10 MG TAB PO SCH (22:15)
[2021-12-16] MEDS: ACCU-CHEK COMFORT CURVE STRIP VI SCH ×4 (00:50→17:29)
[2021-12-16] MEDS: InsuLIN REG 1unit/0.01ml Soln (100units/ml) SC SCH ×4 (06:00→17:29)
[2021-12-16] MEDS: GABAPENTIN 300 MG CAP PO SCH ×3 (06:45→22:05)
[2021-12-16] MEDS: MORPHINE SULFATE INJ 2 MG/ml SYRG IV PRN ×5 (06:47→22:50)
[2021-12-16 07:50] LABS: Albumin 2.7 g/dL (3.4-5.0); BUN/Creatinine Ratio 14.1; Calcium 8.4 mg/dL (8.5-10.1); Magnesium 2.5 mg/dL (1.6-2.6); Phosphorus 2.6 mg/dL (2.5-4.90); Potassium 3.9 mmol/L (3.5-5.1)
[2021-12-16 08:00] VITALS: BP_DIAS 0
[2021-12-16 09:00] VITALS: BP 146/84
[2021-12-16] MEDS: PANTOPRAZOLE 40 MG/10 ML VIAL INJ IV SCH ×2 (10:32→22:04)
[2021-12-16] MEDS: SODIUM CHLOR 0.9% PF (SALINE LOCK) 10ML VIAL/SYR IV SCH ×2 (10:32→22:05)
[2021-12-16] MEDS: HEPARIN SODIUM (PORCINE) 5000 UNITS/ML 1ML VIAL SC SCH ×2 (10:33→22:09)
[2021-12-16 13:00] VITALS: BP 131/86
[2021-12-16 17:00] VITALS: BP 138/84
[2021-12-16] MEDS ORDERED: TPN PER PHARMACY IV NR ×8 (20:00)
[2021-12-16 22:00] VITALS: BP 141/91
[2021-12-16] MEDS: MONTELUKAST SODIUM 10 MG TAB PO SCH (22:05)
[2021-12-17] MEDS: ACCU-CHEK COMFORT CURVE STRIP VI SCH ×5 (00:07→23:39)
[2021-12-17] MEDS: MORPHINE SULFATE INJ 2 MG/ml SYRG IV PRN ×6 (03:36→23:05)
[2021-12-17 05:00] VITALS: BP 137/88
[2021-12-17] MEDS: InsuLIN REG 1unit/0.01ml Soln (100units/ml) SC SCH ×4 (05:57→18:00)
[2021-12-17] MEDS: GABAPENTIN 300 MG CAP PO SCH ×3 (06:08→22:19)
[2021-12-17 07:44] VITALS: BP_DIAS 0
[2021-12-17 09:00] VITALS: BP 147/100
[2021-12-17] MEDS: SODIUM CHLOR 0.9% PF (SALINE LOCK) 10ML VIAL/SYR IV SCH ×2 (09:04→22:19)
[2021-12-17] MEDS: PANTOPRAZOLE 40 MG/10 ML VIAL INJ IV SCH ×2 (09:04→22:19)
[2021-12-17] MEDS: HEPARIN SODIUM (PORCINE) 5000 UNITS/ML 1ML VIAL SC SCH (09:05)
[2021-12-17 10:59] LABS: Albumin 2.7 g/dL (3.4-5.0); BUN/Creatinine Ratio 20.5; Calcium 8.6 mg/dL (8.5-10.1); Magnesium 2.4 mg/dL (1.6-2.6); Phosphorus 3.4 mg/dL (2.5-4.90); Potassium 4.3 mmol/L (3.5-5.1)
[2021-12-17 13:00] VITALS: BP 144/94
[2021-12-17] MEDS: ONDANSETRON HCL 4 MG/2 ML VIAL IV PRN ×2 (15:10→20:01)
[2021-12-17 17:00] VITALS: BP 100/81
[2021-12-17] MEDS ORDERED: TPN PER PHARMACY IV NR ×10 (20:00)
[2021-12-17 22:00] VITALS: BP 140/89
[2021-12-17] MEDS: MONTELUKAST SODIUM 10 MG TAB PO SCH (22:19)
[2021-12-18] MEDS: ONDANSETRON HCL 4 MG/2 ML VIAL IV PRN ×5 (00:05→20:30)
[2021-12-18] MEDS: MORPHINE SULFATE INJ 2 MG/ml SYRG IV PRN ×5 (04:56→20:29)
[2021-12-18 05:00] VITALS: BP 133/92
[2021-12-18] MEDS: GABAPENTIN 300 MG CAP PO SCH ×3 (05:50→21:59)
[2021-12-18] MEDS: ACCU-CHEK COMFORT CURVE STRIP VI SCH ×3 (05:50→18:55)
[2021-12-18] MEDS: InsuLIN REG 1unit/0.01ml Soln (100units/ml) SC SCH ×4 (05:50→18:56)
[2021-12-18 09:00] VITALS: BP 147/92
[2021-12-18] MEDS: BENZOCAINE (DENTAL) 20 % SPRAY 60ML MT PRN ×2 (09:08→18:56)
[2021-12-18 09:40] LABS: Basophils # (auto) 0.1 10 ^3/uL (0-0.2); Basophils % (auto) 1.4 % (0.0-2.0); Eosinophils # (auto) 0.3 10 ^3/uL (0-0.8); Eosinophils % (auto) 2.8 % (0.0-7.0); Hematocrit 34.8 % (41.0-53.0); Hemoglobin 11.7 g/dL (13.5-17.5); Lymphocytes % (auto) 22.7 % (10.0-50.0); Mean Corpuscular Hemoglobin 29.2 pg (28.0-32.0); Mean Corpuscular Hgb Conc. 33.6 g/dL (32.0-36.0); Mean Corpuscular Volume 86.7 fL (80.0-100.0); Monocytes # (auto) 1.1 10 ^3/uL (0-1.3); Monocytes % (auto) 12.7 % (0.0-12.0); Neutrophils # (auto) 5.4 10 ^3/uL (1.6-8.6); Neutrophils % (auto) 60.4 % (37.0-80.0); Nucleated Red Blood Cells % 0.2 %; Red Blood Cells 4.01 10^6/uL (4.5-5.90); Red Cell Distribution Width 16.1 % (11.8-14.3); White Blood Cell 8.9 10^3/uL (4.4-10.8)
[2021-12-18 10:00] LABS: Albumin 2.9 g/dL (3.4-5.0); Calcium 8.9 mg/dL (8.5-10.1); Magnesium 2.2 mg/dL (1.6-2.6); Potassium 4.1 mmol/L (3.5-5.1)
[2021-12-18 10:02] LABS: BUN/Creatinine Ratio 22.8; Phosphorus 3.8 mg/dL (2.5-4.90)
[2021-12-18] MEDS: SODIUM CHLOR 0.9% PF (SALINE LOCK) 10ML VIAL/SYR IV SCH ×2 (10:43→21:59)
[2021-12-18] MEDS: ENOXAPARIN SOD 40 MG/0.4 ML SYRINGE SC SCH (10:44)
[2021-12-18] MEDS: PANTOPRAZOLE 40 MG/10 ML VIAL INJ IV SCH ×2 (10:44→21:59)
[2021-12-18 13:11] VITALS: BP 102/69
[2021-12-18 17:00] VITALS: BP 116/77
[2021-12-18] MEDS ORDERED: TPN PER PHARMACY IV NR ×10 (20:00)
[2021-12-18] MEDS: MONTELUKAST SODIUM 10 MG TAB PO SCH (21:59)
[2021-12-18 22:08] VITALS: BP 136/79
[2021-12-19] MEDS: ACCU-CHEK COMFORT CURVE STRIP VI SCH ×4 (00:21→17:58)
[2021-12-19] MEDS: MORPHINE SULFATE INJ 2 MG/ml SYRG IV PRN ×5 (03:14→21:54)
[2021-12-19] MEDS: ONDANSETRON HCL 4 MG/2 ML VIAL IV PRN ×4 (03:16→21:54)
[2021-12-19 05:00] VITALS: BP 132/80
[2021-12-19 05:34] LABS: Eosinophils # (auto) 0.2 10 ^3/uL (0-0.8); Nucleated Red Blood Cells % 0.1 %
[2021-12-19 05:37] LABS: Basophils # (auto) 0.1 10 ^3/uL (0-0.2); Basophils % (auto) 1.3 % (0.0-2.0); Hematocrit 33.1 % (41.0-53.0); Hemoglobin 11.2 g/dL (13.5-17.5); Lymphocytes # (auto) 1.9 10 ^3/uL (0.4-5.4); Mean Corpuscular Hemoglobin 29.4 pg (28.0-32.0); Mean Corpuscular Hgb Conc. 33.9 g/dL (32.0-36.0); Mean Corpuscular Volume 86.6 fL (80.0-100.0); Monocytes # (auto) 0.8 10 ^3/uL (0-1.3); Monocytes % (auto) 7.9 % (0.0-12.0); Neutrophils # (auto) 6.9 10 ^3/uL (1.6-8.6); Neutrophils % (auto) 69.8 % (37.0-80.0); Red Blood Cells 3.82 10^6/uL (4.5-5.90); White Blood Cell 9.9 10^3/uL (4.4-10.8)
[2021-12-19 05:52] LABS: INR 1.1 (0.9-1.15); Partial Thromboplastin Time 20.8 sec (23.6-33.0)
[2021-12-19] MEDS: InsuLIN REG 1unit/0.01ml Soln (100units/ml) SC SCH ×4 (06:00→17:58)
[2021-12-19] MEDS: GABAPENTIN 300 MG CAP PO SCH ×3 (06:12→21:52)
[2021-12-19] MEDS: BENZOCAINE (DENTAL) 20 % SPRAY 60ML MT PRN (08:47)
[2021-12-19 09:00] VITALS: BP 115/72
[2021-12-19 10:18] LABS: Potassium 4.3 mmol/L (3.5-5.1)
[2021-12-19 10:38] LABS: Albumin 2.8 g/dL (3.4-5.0); BUN/Creatinine Ratio 23.1; Bilirubin, Total 0.4 mg/dL (0.2-1.0); Calcium 8.4 mg/dL (8.5-10.1); Magnesium 1.8 mg/dL (1.6-2.6); Total Protein 6.5 g/dL (6.4-8.2)
[2021-12-19] MEDS: PANTOPRAZOLE 40 MG/10 ML VIAL INJ IV SCH ×2 (11:48→21:52)
[2021-12-19] MEDS: SODIUM CHLOR 0.9% PF (SALINE LOCK) 10ML VIAL/SYR IV SCH ×2 (11:48→21:52)
[2021-12-19] MEDS: ENOXAPARIN SOD 40 MG/0.4 ML SYRINGE SC SCH (12:43)
[2021-12-19 13:00] VITALS: BP 106/83
[2021-12-19 16:48] VITALS: BP 111/69
[2021-12-19] MEDS ORDERED: TPN PER PHARMACY IV NR ×9 (20:00)
[2021-12-19] MEDS: MONTELUKAST SODIUM 10 MG TAB PO SCH (21:53)
[2021-12-19 22:00] VITALS: BP 122/80
[2021-12-20] MEDS: ACCU-CHEK COMFORT CURVE STRIP VI SCH ×2 (00:22→06:04)
[2021-12-20 05:00] VITALS: BP 127/90
[2021-12-20] MEDS: ONDANSETRON HCL 4 MG/2 ML VIAL IV PRN ×2 (05:09→17:06)
[2021-12-20] MEDS: MORPHINE SULFATE INJ 2 MG/ml SYRG IV PRN ×2 (05:11→10:43)
[2021-12-20 05:26] LABS: Albumin 2.9 g/dL (3.4-5.0); Calcium 8.4 mg/dL (8.5-10.1); Magnesium 2.3 mg/dL (1.6-2.6); Potassium 4.1 mmol/L (3.5-5.1)
[2021-12-20 05:31] LABS: BUN/Creatinine Ratio 20.9; Bilirubin, Total 0.2 mg/dL (0.2-1.0); Phosphorus 3.2 mg/dL (2.5-4.90); Total Protein 6.6 g/dL (6.4-8.2)
[2021-12-20] MEDS: InsuLIN REG 1unit/0.01ml Soln (100units/ml) SC SCH ×2 (06:00)
[2021-12-20] MEDS: GABAPENTIN 300 MG CAP PO SCH ×2 (06:04→14:28)
[2021-12-20 08:00] VITALS: BP 107/70
[2021-12-20] MEDS: PANTOPRAZOLE 40 MG/10 ML VIAL INJ IV SCH (10:40)
[2021-12-20] MEDS: SODIUM CHLOR 0.9% PF (SALINE LOCK) 10ML VIAL/SYR IV SCH (10:41)
[2021-12-20] MEDS: ENOXAPARIN SOD 40 MG/0.4 ML SYRINGE SC SCH (10:41)
[2021-12-20 12:00] VITALS: BP 111/72
[2021-12-20 16:00] VITALS: BP 123/84
[2021-12-20] MEDS ORDERED: PANT40T PO (16:47)
[2021-12-20] MEDS ORDERED: HYDR-4902 PO (16:47)
[2021-12-20 17:38] VITALS: BP 123/84
[2021-12-20] MEDS ORDERED: TPN PER PHARMACY IV NR ×9 (20:00)
== END 2021-12-20 18:17 | disposition home or self-care (01) | DRG 393 ==
LOC: ER 16:05 → EDBD 16:05 → ICU WEST 23:16 → UNDOADMIN 23:16 → TELE 23:16 → TELE-CENTR 12-04 04:45 → ICU WEST 12-05 09:31 → TELE 12-05 09:31 → ICU WEST 12-08 07:40 → TELE-CENTR 12-08 07:40 → UNDODISIN 12-20 18:17
PROVIDERS: ADMIT Nurse Practitioner; ATTEND Nurse Practitioner
PROC: 02HV33Z Insertion of Infusion Device into Superior Vena Cava, Percutaneous Approach (ICD-10-PCS; 2021-12-06)
PROC: B548ZZA Ultrasonography of Superior Vena Cava, Guidance (ICD-10-PCS; 2021-12-06)
PROC: 0DJD8ZZ Inspection of Lower Intestinal Tract, Via Natural or Artificial Opening Endoscopic (ICD-10-PCS; principal; 2021-12-11 13:08)
DX: K55.9 Vascular disorder of intestine, unspecified (principal); N17.0 Acute kidney failure with tubular necrosis; I13.0 Hypertensive heart and chronic kidney disease with heart failure and stage 1 through stage 4 chronic kidney disease, or unspecified chronic kidney disease; K57.92 Diverticulitis of intestine, part unspecified, without perforation or abscess without bleeding; R65.10 Systemic inflammatory response syndrome (SIRS) of non-infectious origin without acute organ dysfunction; J44.9 Chronic obstructive pulmonary disease, unspecified; S09.90XA Unspecified injury of head, initial encounter; R55 Syncope and collapse; N18.9 Chronic kidney disease, unspecified; E87.5 Hyperkalemia; I73.9 Peripheral vascular disease, unspecified; K64.8 Other hemorrhoids; K59.00 Constipation, unspecified; I50.9 Heart failure, unspecified; G89.29 Other chronic pain; G62.9 Polyneuropathy, unspecified; E87.6 Hypokalemia; Z20.822 Contact with and (suspected) exposure to COVID-19; R79.89 Other specified abnormal findings of blood chemistry; X58.XXXA Exposure to other specified factors, initial encounter; Y93.89 Activity, other specified; Y92.89 Other specified places as the place of occurrence of the external cause; Y99.8 Other external cause status; Z90.49 Acquired absence of other specified parts of digestive tract; Z79.899 Other long term (current) drug therapy; Z86.718 Personal history of other venous thrombosis and embolism
CPT/HCPCS: 36415; 36569; 36600; 45378; 70450; 71045; 72125; 74018; 74176; 74177; 76775; 78582; 80048; 80053; 80069; 80307; 80320; 81001; 82550; 82805; 82962; 83605; 83735; 83880; 84100; 84132; 84478; 84484; 85007; 85025; 85027; 85048; 85379; 85610; 85730; 86850; 86900; 86901; 87040; 87045; 87077; 87081; 87186; 87427; 87493; 93005; 93306; 93925; 94640; 94644; 95819; 96361; 96365; 96366; 96367; 96368; 96375; 97110; 97116; 97163; 97530; 99291; C9113; G0378; J0696; J1815; J2250; J2405; J2543; J3480; J3490; J7060

== ENCOUNTER 2022-09-03 06:12 | Inpatient (IN) | payer OTHER, MEDICAID ==
[~2022-09-03] VITALS: Ht 185.4 cm; Wt 99.0 kg
[~2022-09-03 06:12] MED LIST: ATOR40TA52 PO; CARV3.1240 PO; GABA300C10 PO; HYDR-4902 PO; LISI-275 PO; MONT-8 OR; MULT-1018 PO; PANT40T PO
[2022-09-03 07:06] LABS: Mean Corpuscular Volume 86.5 fL (80.0-100.0); Red Cell Distribution Width 15.8 % (11.8-14.3)
[2022-09-03 07:09] LABS: Hematocrit 28.1 % (41.0-53.0); Hemoglobin 8.9 g/dL (13.5-17.5); Mean Corpuscular Hemoglobin 27.6 pg (28.0-32.0); Mean Corpuscular Hgb Conc. 31.9 g/dL (32.0-36.0); Red Blood Cells 3.24 10^6/uL (4.5-5.90)
[2022-09-03 07:20] LABS: Albumin 2.4 g/dL (3.4-5.0); Calcium 7.8 mg/dL (8.5-10.1); INR 1.16 (0.9-1.15); Magnesium 1.8 mg/dL (1.6-2.6); Partial Thromboplastin Time 31.8 sec (24.6-33.4); Potassium 4.2 mmol/L (3.5-5.1)
[2022-09-03 07:21] LABS: Basophils % (manual) 0 (0.0-2.0); Blast Cells 0; Eosinophils % (manual) 0 (0-7); Metamyelocytes % 0; Promyelocytes % 0; Reactive Lymphocytes 0
[2022-09-03 07:25] LABS: BUN/Creatinine Ratio 23.9; Bilirubin, Total 0.3 mg/dL (0.2-1.0); Total Protein 5.3 g/dL (6.4-8.2)
[2022-09-03 07:50] LABS: Band Neutrophils % (manual) 8; Lymphocytes % (manual) 12 (10.0-50.0); Monocytes % (manual) 8 (0-12); Myelocytes % 1
[2022-09-03] MEDS ORDERED: SODIUM CHLORIDE 0.9% 1,000 ML IV ONE ×3 (09:45→12:00)
[2022-09-03] MEDS ORDERED: AZITHROMYCIN 500MG/ 250ML 250 ML IV ONE ×2 (09:45→13:30)
[2022-09-03] MEDS ORDERED: cefTRIAXone 1GM/50ML D5W 50 ML IV ONE (09:45)
[2022-09-03] MEDS ORDERED: ALBUMIN 5% 250 ML IV ONE (12:00)
[2022-09-03] MEDS ORDERED: ALBUTEROL SULF 2.5 MG/0.5ML(0.5%) NEB SOLN NEB PRN (12:15)
[2022-09-03] MEDS ORDERED: IPRATROPIUM BROM 0.5 MG/2.5ML INH SOL NEB PRN (12:15)
[2022-09-03] MEDS ORDERED: NITROGLYCERIN 0.4 MG SL TAB SL PRN (12:15)
[2022-09-03] MEDS ORDERED: MORPHINE SULFATE INJ 2 MG/ml SYRG IV PRN (12:15)
[2022-09-03 12:34] LABS: Magnesium 1.7 mg/dL (1.6-2.6)
[2022-09-03] MEDS ORDERED: ENOXAPARIN SOD 40 MG/0.4 ML SYRINGE SC ONE (13:15)
[2022-09-03] MEDS ORDERED: PANTOPRAZOLE 40 MG/10 ML VIAL INJ IV ONE (13:15)
[2022-09-03] MEDS ORDERED: NOREPINEPHRINE 8 MG/250ML KIT 250 ML IV SCH (14:00)
[2022-09-03 14:53] LABS: Urine Bacteria NONE SEEN /hpf (None Seen); Urine Blood Negative /uL (Negative); Urine Hyaline Cast FEW /lpf (0 - 2); Urine Mucus FEW (None Seen); Urine Specific Gravity 1.016 (1.001-1.035); Urine WBC <1 /hpf (0 - 3)
[2022-09-03] MEDS: SODIUM CHLORIDE 0.9% 1,000 ML IV SCH ×2 (15:07→20:00)
[2022-09-03] MEDS: ALBUTEROL SULF 2.5 MG/0.5ML(0.5%) NEB SOLN NEB SCH (19:52)
[2022-09-03] MEDS: IPRATROPIUM BROM 0.5 MG/2.5ML INH SOL NEB SCH (19:52)
[2022-09-03] MEDS ORDERED: MORPHINE SULFATE INJ 2 MG/ml SYRG ONE (22:43)
[2022-09-03 23:33] VITALS: BP 112/73
[2022-09-04] MEDS: SODIUM CHLORIDE 0.9% 1,000 ML IV SCH ×2 (04:00→12:00)
[2022-09-04 06:42] LABS: Basophils # (auto) 0.1 10 ^3/uL (0-0.2); Eosinophils # (auto) 0.2 10 ^3/uL (0-0.8); Eosinophils % (auto) 1.6 % (0.0-7.0); Monocytes # (auto) 1.3 10 ^3/uL (0-1.3); Red Cell Distribution Width 15.8 % (11.8-14.3)
[2022-09-04 06:45] LABS: Basophils % (auto) 0.7 % (0.0-2.0); Hematocrit 26.8 % (41.0-53.0); Hemoglobin 8.8 g/dL (13.5-17.5); Lymphocytes # (auto) 1.9 10 ^3/uL (0.4-5.4); Lymphocytes % (auto) 18.2 % (10.0-50.0); Mean Corpuscular Hemoglobin 28.2 pg (28.0-32.0); Mean Corpuscular Volume 85.6 fL (80.0-100.0); Monocytes % (auto) 12.5 % (0.0-12.0); Neutrophils # (auto) 7.1 10 ^3/uL (1.6-8.6); Red Blood Cells 3.13 10^6/uL (4.5-5.90); White Blood Cell 10.6 10^3/uL (4.4-10.8)
[2022-09-04 06:53] LABS: Potassium 4.8 mmol/L (3.5-5.1)
[2022-09-04] MEDS: IPRATROPIUM BROM 0.5 MG/2.5ML INH SOL NEB SCH ×3 (07:02→19:56)
[2022-09-04] MEDS: ALBUTEROL SULF 2.5 MG/0.5ML(0.5%) NEB SOLN NEB SCH ×2 (07:02→12:39)
[2022-09-04 07:03] LABS: Albumin 2.5 g/dL (3.4-5.0); BUN/Creatinine Ratio 30.5; Calcium 7.9 mg/dL (8.5-10.1)
[2022-09-04 07:05] LABS: Bilirubin, Total 0.7 mg/dL (0.2-1.0); Total Protein 6.1 g/dL (6.4-8.2)
[2022-09-04 09:00] VITALS: BP 132/86
[2022-09-04] MEDS ORDERED: cefTRIAXone 1GM/50ML D5W 50 ML IV SCH (09:00)
[2022-09-04] MEDS: PANTOPRAZOLE 40 MG/10 ML VIAL INJ IV SCH (09:56)
[2022-09-04] MEDS ORDERED: AZITHROMYCIN 500MG/ 250ML 250 ML IV SCH (10:00)
[2022-09-04] MEDS ORDERED: ENOXAPARIN SOD 40 MG/0.4 ML SYRINGE SC SCH (10:00)
[2022-09-04] MEDS: ENOXAPARIN SOD 40 MG/0.4 ML SYRINGE SC SCH (10:37)
[2022-09-04 11:53] VITALS: BP 132/86
[2022-09-04 13:00] VITALS: BP 110/68
[2022-09-04] MEDS ORDERED: ALBUTEROL MEDNEB 2.5 mg/3ml NEB NEB PRN (15:30)
[2022-09-04] MEDS: guaiFENesin-DM 100/10mg/5ml SYR PO PRN ×2 (15:36→19:59)
[2022-09-04 17:00] VITALS: BP 111/75
[2022-09-04] MEDS ORDERED: IPRATROPIUM BROM 0.5 MG/2.5ML INH SOL ONE (18:02)
[2022-09-04] MEDS: ALBUTEROL MEDNEB 2.5 mg/3ml NEB NEB SCH (19:56)
[2022-09-04 22:00] VITALS: BP 121/76
[2022-09-04] MEDS ORDERED: MONTELUKAST SODIUM 10 MG TAB PO SCH (22:00)
[2022-09-05 05:00] VITALS: BP 100/74
[2022-09-05] MEDS ORDERED: IPRATROPIUM BROM 0.5 MG/2.5ML INH SOL ONE ×3 (05:38→18:28)
[2022-09-05 06:19] LABS: Basophils # (auto) 0.1 10 ^3/uL (0-0.2); Basophils % (auto) 1.4 % (0.0-2.0); Eosinophils # (auto) 0.2 10 ^3/uL (0-0.8); Hemoglobin 8.8 g/dL (13.5-17.5); Lymphocytes # (auto) 2.2 10 ^3/uL (0.4-5.4); Monocytes # (auto) 1.4 10 ^3/uL (0-1.3); Neutrophils # (auto) 3.8 10 ^3/uL (1.6-8.6); Nucleated Red Blood Cells % 0.1 %
[2022-09-05 06:27] LABS: BUN/Creatinine Ratio 27.9; Calcium 8.1 mg/dL (8.5-10.1); Potassium 4.7 mmol/L (3.5-5.1)
[2022-09-05 06:28] LABS: Eosinophils % (auto) 2.1 % (0.0-7.0); Hematocrit 26.5 % (41.0-53.0); Lymphocytes % (auto) 28.6 % (10.0-50.0); Mean Corpuscular Hemoglobin 28.4 pg (28.0-32.0); Mean Corpuscular Hgb Conc. 33.3 g/dL (32.0-36.0); Mean Corpuscular Volume 85.3 fL (80.0-100.0); Monocytes % (auto) 17.9 % (0.0-12.0); Red Cell Distribution Width 15.8 % (11.8-14.3); White Blood Cell 7.7 10^3/uL (4.4-10.8)
[2022-09-05 06:44] LABS: Protein, Urine 22.1 mg/dL (0.0-11.9)
[2022-09-05] MEDS: ALBUTEROL MEDNEB 2.5 mg/3ml NEB NEB SCH ×3 (06:45→18:25)
[2022-09-05] MEDS: IPRATROPIUM BROM 0.5 MG/2.5ML INH SOL NEB SCH ×3 (06:45→18:25)
[2022-09-05 09:00] VITALS: BP 99/69
[2022-09-05] MEDS: ENOXAPARIN SOD 40 MG/0.4 ML SYRINGE SC SCH (09:07)
[2022-09-05] MEDS: PANTOPRAZOLE 40 MG/10 ML VIAL INJ IV SCH (09:07)
[2022-09-05] MEDS: guaiFENesin-DM 100/10mg/5ml SYR PO PRN (09:08)
[2022-09-05] MEDS ORDERED: levoFLOXacin 500MG 100 ML IV SCH (10:00)
[2022-09-05] MEDS ORDERED: DEXT1SYP9 PO (12:05)
[2022-09-05] MEDS ORDERED: LEVO500T31 PO (12:05)
[2022-09-05 13:00] VITALS: BP 102/76
[2022-09-05 16:48] VITALS: BP 119/75
== END 2022-09-05 18:50 | disposition home or self-care (01) | DRG 871 ==
LOC: EDBD 06:12 → ER 06:12 → TELE 12:08 → TELE-CENTR 09-04 09:08
PROVIDERS: ADMIT Registered Nurse; ATTEND Internal Medicine
DX: A41.9 Sepsis, unspecified organism (principal); E43 Unspecified severe protein-calorie malnutrition; J18.9 Pneumonia, unspecified organism; N17.0 Acute kidney failure with tubular necrosis; N18.4 Chronic kidney disease, stage 4 (severe); I13.0 Hypertensive heart and chronic kidney disease with heart failure and stage 1 through stage 4 chronic kidney disease, or unspecified chronic kidney disease; I50.22 Chronic systolic (congestive) heart failure; J44.0 Chronic obstructive pulmonary disease with (acute) lower respiratory infection; D75.839 Thrombocytosis, unspecified; E66.9 Obesity, unspecified; D64.9 Anemia, unspecified; I48.91 Unspecified atrial fibrillation; Z68.28 Body mass index [BMI] 28.0-28.9, adult; Z90.49 Acquired absence of other specified parts of digestive tract; R55 Syncope and collapse; M50.30 Other cervical disc degeneration, unspecified cervical region; Z20.822 Contact with and (suspected) exposure to COVID-19
CPT/HCPCS: 36415; 36600; 70450; 71045; 72125; 72141; 76775; 78582; 80048; 80053; 80061; 81001; 82306; 82570; 82728; 82805; 83036; 83540; 83550; 83605; 83735; 83970; 84100; 84156; 84300; 84443; 84484; 85007; 85025; 85027; 85379; 85610; 85730; 87040; 87426; 93005; 93306; 93886; 94640; C9113; G0378; J0696; J1956